=== PATIENT | female | born 1945 | race Caucasian/White ===

== ENCOUNTER → 2018-07-24 | Outpatient (CLI) | payer MEDICARE ==
[~2018-07-24] MED LIST: CATHETER FLUSH 10 ML SYR IV PRN; IOPAMIDOL 61% 100 ML (ISOVUE 300) VIAL IV ONE; NS 50 ML (IVPB) BAG IV ONE
[2018-07-24 13:03] LABS: BUN/CREATININE RATIO 33; CREATININE SERUM 0.66 MG/DL (0.60-1.30); GFR ESTIMATED > 60
--- NOTE | 2018-07-24 18:27 | Diagnostic Imaging Report ---
PROCEDURE: CT abdomen with and without contrast. TECHNIQUE: Multiple contiguous axial CT images of the abdomen were obtained prior to and after intravenous administration of iodinated contrast. INDICATION: Right-sided back pain. FINDINGS: There are left-sided renal hilar vascular calcifications. There are no opaque kidney stones. There is no hydronephrosis. The urinary bladder appeared unremarkable. The ureters were unobstructed. No perinephric mass, fluid collection, or hemorrhage. The liver, spleen, adrenals, pancreas, and gallbladder are all unremarkable. There is no mesenteric or retroperitoneal adenopathy. There is no ascites. No bowel obstruction. Uterus is absent. There is no adnexal lesion. There is no ascites or fluid collection. The osseous structures appeared nonacute. IMPRESSION: Unobstructed unremarkable urinary tracts. No inflammatory process, mass, fluid collection, or acute abnormalities. Dictated by: Dictated on workstation # [id number]
== END ==
LOC: RAD FS 12:10
PROVIDERS: ATTEND Family Medicine
DX: Z00.00 Encounter for general adult medical examination without abnormal findings (principal); M54.41 Lumbago with sciatica, right side
CPT/HCPCS: 36415; 74170; 82565; 84520